=== PATIENT | male | born 1960 | race African-American/Black ===

== ENCOUNTER 2024-02-22 13:36 | Emergency (ER) | payer MEDICAID, OTHER ==
[~2024-02-22] VITALS: Ht 175.3 cm; Wt 70.0 kg
[~2024-02-22 13:36] MED LIST: QUET100T PO
[2024-02-22 13:40] VITALS: O2SAT 99
[2024-02-22 15:28] VITALS: TEMP 98.6
[2024-02-22] MEDS: ACETAMINOPHEN 325MG TABLET PO ONE (15:28)
[2024-02-22] MEDS ORDERED: TOPUD MT (15:52)
[2024-02-22] MEDS ORDERED: IBUP-1523 MT (15:52)
[2024-02-22] MEDS: BACITRACIN ZINC OINT UDPKT TOP ONE (16:35)
[2024-02-22 16:42] VITALS: BP 128/78; PULSE 88; RESP 16; O2SAT 99
== END 2024-02-22 16:45 ==
LOC: ER 13:45
DX: S00.01XA Abrasion of scalp, initial encounter (principal); F10.20 Alcohol dependence, uncomplicated; V89.2XXA Person injured in unspecified motor-vehicle accident, traffic, initial encounter; Y93.89 Activity, other specified; Y92.89 Other specified places as the place of occurrence of the external cause; Y99.8 Other external cause status
CPT/HCPCS: 99283